=== PATIENT | male | born 1995 | race Caucasian/White ===

== ENCOUNTER 2018-10-09 13:08 | Emergency (ER) | payer BC, SELFPAY ==
[2018-10-09 13:09] VITALS: BP 140/86; PULSE 94; RESP 16; TEMP 36.3; O2SAT 98; BMI 17.2
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
[2018-10-09 13:26] VITALS: BP 115/73; PULSE 70; RESP 16
[2018-10-09] MEDS: HYDROcodone Bitartrate/Apap 5/325 Tablet PO (13:27)
[2018-10-09] MEDS: Diphth,Pertuss(Acell),Tet Vac 0.5 ML Vial IM (13:29)
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
== END 2018-10-09 14:35 | disposition home or self-care (01) ==
LOC: ED 13:53
PROVIDERS: Emergency Provider Emergency Medicine
DX: S80.01XA Contusion of right knee, initial encounter (principal); S60.511A Abrasion of right hand, initial encounter; S99.912A Unspecified injury of left ankle, initial encounter; V28.4XXA Motorcycle driver injured in noncollision transport accident in traffic accident, initial encounter; Y93.9 Activity, unspecified; Y92.9 Unspecified place or not applicable; Y99.9 Unspecified external cause status
CPT/HCPCS: 73564; 73610; 73630; 90715; 99283

== ENCOUNTER 2018-10-22 23:38 | Emergency (ER) | payer BC, SELFPAY ==
[2018-10-22 23:39] VITALS: BP 124/76; PULSE 98; RESP 16; TEMP 36.1; O2SAT 99; BMI 16.7
[2018-10-23 01:00] VITALS: PULSE 77; RESP 14; O2SAT 98
[2018-10-23 02:00] VITALS: PULSE 75; RESP 14; O2SAT 98
[2018-10-23 02:58] VITALS: PULSE 80; RESP 15; O2SAT 98
[2018-10-23 04:55] VITALS: RESP 16
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
--- NOTE | 2018-10-23 04:57 | ED.DEP ---
ED Disposition - Plan for ED Patient: Instructions: ED Alcohol Intoxication Referrals: Care Physician,No Primary [Primary Care Provider] -
== END 2018-10-23 05:45 | disposition home or self-care (01) ==
PROVIDERS: Emergency Provider Emergency Medicine
DX: F10.129 Alcohol abuse with intoxication, unspecified (principal)
CPT/HCPCS: 99285

== ENCOUNTER 2019-07-18 14:50 | Emergency (ER) | payer BC, SELFPAY ==
[2019-07-18 14:50] VITALS: BP 143/80; PULSE 107; RESP 18; TEMP 36.6; O2SAT 99; BMI 19.9
--- NOTE | 2019-07-18 15:12 | RAD_ITS ---
STUDY: X-RAY - RIGHT WRIST REASON FOR EXAM: Male, 23 years old. Pain following a fall. TECHNIQUE: 3 view(s) of the wrist were obtained. COMPARISON: None. FINDINGS: Normal visualized distal radius and ulna. Normal radiocarpal articulation. Normal distal radioulnar articulation. Normal carpal bones. Normal carpal articulations. Normal carpometacarpal articulation of the thumb. Normal second through fifth carpometacarpal articulations. Normal visualized metacarpal bones. The soft tissue structures are unremarkable. RAD/Wrist min 3 Views IMPRESSION: Normal x-ray examination of the wrist. Electronically Signed: Samy Johnson, at 15:40 EST , Service support ,
--- NOTE | 2019-07-18 15:12 | RAD_ITS ---
STUDY: X-RAY - RIGHT HAND REASON FOR EXAM: Male, 23 years old. Pain following a fall. TECHNIQUE: 3 view(s) of the hand. COMPARISON: None. FINDINGS: Normal radiocarpal articulation. Normal distal radioulnar joint. Normal visualized carpal bones. Normal carpal articulations Normal carpometacarpal articulation of the thumb. Normal second through fifth carpometacarpal joints. Normal metacarpi. Normal metacarpophalangeal joint of the thumb. Normal interphalangeal joint of the thumb. Normal proximal and distal phalanges of the thumb. Normal metacarpophalangeal joints of the second through fifth fingers. Normal proximal and distal interphalangeal joints of the second through fifth fingers. Normal phalanges of the second through fifth fingers. The soft tissue structures are unremarkable. RAD/Hand Min 3 Views IMPRESSION: Normal x-ray examination of the hand. Electronically Signed: Samy Johnson, at 15:39 EST , Service support ,
--- NOTE | 2019-07-18 15:13 | ED.VIS.INJ ---
History of Present Illness Chief Complaint: Upper Extremity Injury Informant: Patient Onset: Today Mechanism/Context: Fall Quality of Pain: Aching Narrative: Patient is a 23-year-old male with no past medical history presenting with right thumb dominant. Patient states he is left-hand dominant. He states he was home when he tripped and fell. When he landed his right thumb bent backwards. He denies any other injuries or hitting his head. He came immediately to the emergency room because he was having a lot of pain and went to make sure he did not have a more serious injury. He denies any numbness or tingling. He states he gets waves of throbbing pain. The pain does radiate to his wrist. Is worse with movement. He denies any numbness or weakness. He denies any other complaints at this time. Past Medical History - Allergies and Home Meds Allergies/Adverse Reactions: Allergies No Known Allergies Allergy (Verified 07/18/19 14:52) Primary Care Physician: Care Physician,No Primary [Primary Care Provider] - Past Medical History: None Surgical History: noncontributory Smoking Status: Current every day smoker Alcohol: None Drugs: None Review of Systems General: Denies: Chills, Fever Cardiovascular: Denies: Chest pain Respiratory: Denies: Dyspnea Gastrointestinal: Denies: Abdominal pain, Nausea Musculoskeletal: Reports: Extremity Pain - Right thumb Skin: Denies: Rash, Abrasions, Wounds Neurological: Denies: Headache Physical Exam Vital Signs/Narrative: Vital Signs Temp Pulse Resp BP Pulse Ox 07/18/19 14:50 98 F 107 H 18 143/80 H 99 Inital Vital Signs reviewed: Yes General: Well nourished, Well developed Head: Normocephalic, Atraumatic Eyes: Perrl, EOMI Neck: Nontender, Full ROM Cardiovascular: Regular rate, Regular rhythm, - - 2+ bilateral radial pulses Respiratory: No distress, Chest nontender Extremeties: Mild tenderness palpation at the base of the right thumb, no obvious bony abnormality or deformity, range of motion intact with flexion and extension of the thumb. No snuffbox tenderness but slight pain with axial loading of the right thumb. No tenderness palpation of the right distal radius or ulna Skin: Normal color, No rash. Negative for: Trauma Neurological: Alert, Oriented x3, Normal Strength, Normal Sensation. Negative for: Parasthesia Psychological: Normal affect Diagnostic/Tx/Re-eval Diagnostic Data Hand X-Ray 07/18/19 15:12 IMPRESSION: Normal x-ray examination of the hand. Electronically Signed: Samy Johnson, at 15:39 EST , Service support , Wrist X-Ray 07/18/19 15:12 IMPRESSION: Normal x-ray examination of the wrist. Electronically Signed: Samy Johnson, at 15:40 EST , Service support , - Medical Decision Making Patient has a right thumb injury after a fall. He has normal range of motion. No obvious deformity. Patient is neurovascularly intact. He does have mild tenderness in the snuffbox on repeat evaluation. Patient be treated for an occult scaphoid fracture thumb spica splint. He is counseled on need to repeat x-ray in approximately 10 days. He is referred to orthopedics as well as PCP as he does not currently have either. Patient is given a dose of Motrin in the ER for pain control. He is given work restrictions for his injury. Patient is counseled on signs and symptoms requiring return to the emergency room. Patient verbalizes agreement and understand this plan. Patient discharged home in stable and improved condition. ED Disposition - Plan for ED Patient: Disposition: Home or Assisted Living Diagnosis: Injury of thumb, right Instructions: FRACTURE, Navicular (wrist), Suspected Prescriptions: Ibuprofen [Motrin] 600 mg PO Q8H PRN PRN #20 tab PRN Reason: Pain/Inflammation Prescription Printed Referrals: Jack Vazquez MD [NON-STAFF] - Bassem Cruz DO [STAFF PHYSICIAN] - Additional Instructions: Does not seem to be an obvious broken bone on her x-rays today. It is possible that you have a sprain. It is also possible that you have a small fracture of your wrist. You need a repeat x-ray in about 10 days to evaluate this. Please follow-up with the primary care doctor or the orthopedist that you were referred to today. Wear your splint. You have been given work restrictions. Take ibuprofen and/or Tylenol for pain. Return to emergency room with any worsening symptoms or further concerns.
[2019-07-18] MEDS: Ibuprofen 600 MG Tablet PO (16:12)
[2019-07-18 16:14] VITALS: PULSE 97; RESP 17
== END 2019-07-18 16:16 | disposition home or self-care (01) ==
PROVIDERS: Emergency Provider Emergency Medicine
DX: S69.91XA Unspecified injury of right wrist, hand and finger(s), initial encounter (principal); W01.0XXA Fall on same level from slipping, tripping and stumbling without subsequent striking against object, initial encounter; Y93.9 Activity, unspecified; Y92.009 Unspecified place in unspecified non-institutional (private) residence as the place of occurrence of the external cause; Y99.9 Unspecified external cause status; F17.200 Nicotine dependence, unspecified, uncomplicated
CPT/HCPCS: 73110; 73130; 99283